=== PATIENT | male | born 1985 | race African-American/Black ===

== ENCOUNTER 2017-09-25 18:18 | Emergency (ER) | payer OTHER, SELFPAY ==
[2017-09-25 18:19] VITALS: BP 155/91; PULSE 81; RESP 16; TEMP 36.4; O2SAT 98; BMI 25.1
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
[2017-09-25 19:26] VITALS: BP 139/88; PULSE 65; RESP 14; O2SAT 99
== END 2017-09-25 19:28 | disposition home or self-care (01) ==
PROVIDERS: Emergency Provider Emergency Medicine
DX: S61.213A Laceration without foreign body of left middle finger without damage to nail, initial encounter (principal); W26.0XXA Contact with knife, initial encounter; Y93.9 Activity, unspecified; Y92.9 Unspecified place or not applicable; Z72.0 Tobacco use
CPT/HCPCS: 12001; 99283

== ENCOUNTER 2018-01-13 02:20 | Emergency (ER) | payer OTHER, SELFPAY ==
[2018-01-13] VITALS (7 sets, daily range): BP systolic 91–156; BP diastolic 44–96; PULSE 48–87; RESP 19–20; TEMP 36.4; O2SAT 97–100; BMI 28.4
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
[2018-01-13] MEDS: 0.9% Normal Saline 1,000 ML 999 ML IV (02:44)
[2018-01-13] MEDS: fentaNYL 100 MCG/2 ML Ampul 50 MCG IV (02:44)
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
[2018-01-13] MEDS: Etomidate 20 MG/10 ML Vial 10 MG IV (03:01)
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
--- NOTE | 2018-01-13 03:58 | ED.RN ---
PT LEFT WITHOUT D/C INSTRUCTIONS. PT REMOVED SLING AND SWATH. PT DRESSED AND WALKED OUT OF THE DEPARTMENTS
== END 2018-01-13 03:59 | disposition home or self-care (01) ==
PROVIDERS: Emergency Provider Emergency Medicine
DX: M24.412 Recurrent dislocation, left shoulder (principal); S00.33XA Contusion of nose, initial encounter; Y04.8XXA Assault by other bodily force, initial encounter; Y93.89 Activity, other specified
CPT/HCPCS: 23650; 73030; 99285; A4216

== ENCOUNTER 2018-02-01 10:10 | Emergency (ER) | payer OTHER, SELFPAY ==
[2018-02-01 10:11] VITALS: BP 148/83; PULSE 94; RESP 18; TEMP 36.8; O2SAT 98; BMI 28.8
[2018-02-01 10:52] LABS: Absolute Lymphocyte Count 1.49 X10^3/ul (0.83-4.51); Absolute Neutrophil Count 7.1 X10^3/uL (2.0-7.7); Anion Gap 6 (5-15); BUN 6 mg/dL (7-18); BUN/Creat Ratio 5.8 RATIO (10-20); Basophil# 0.01 X10^3/uL; Basophil% 0.1 % (0-1); Calcium,Total 8.9 mg/dL (8.5-10.1); Chloride 102 mmol/L (98-107); Creatinine, Serum 1.03 mg/dL (0.70-1.30); EST Glomerular Filtration Rate 89 mL/min (>60); Eosinophil# 0.04 X10^3/uL; Eosinophils% 0.4 % (0-5); Est Glom Filt Rate - Afr Amer 108 mL/min (>60); Estimated Creatinine Clearance 103.91 ml/min; Glucose 75 mg/dL (74-106); Hematocrit 46.5 % (40-54); Hemoglobin 15.9 g/dl (13.0-16.5); Lymphocyte # 1.49 X10^3/ul (4.0); Lymphocyte % 15.8 % (19-41); Mean Corp Hgb Conc 34.2 g/gl (32-36); Mean Corpuscular Hgb 31.4 pg (27.0-32.0); Mean Corpuscular Volume 91.9 fL (80-94); Mean Platelet Vol. 9.5 fl (6.2-12.0); Monocyte# 0.81 X10^3/uL; Monocyte% 8.6 % (0-10); Neutrophil # 7.09 X10^3/uL (2.7-7.7); Neutrophil % 74.9 % (47-70); Platelet Count 234 K/mm3 (150-450); Potassium 4.2 mmol/L (3.5-5.1); RBC Distribution Width CV 12.7 % (11.6-14.6); RBC Distribution Width SD 42.3 fl (35.1-43.9); Red Blood Count 5.06 M/mm3 (4.6-6.2); Sodium Level 137 mmol/L (136-145); White Blood Count 9.5 K/mm3 (4.4-11.0)
[2018-02-01 10:56] LABS: POSITIVE COUNT NO; POSITIVE DIFFERENTIAL NO; POSITIVE MORPHOLOGY NO
--- NOTE | 2018-02-01 12:43 | ED.DCSUM_ITS ---
- ER Visit Summary Date of Service: 02/01/18 Chief Complaint: Worsening rash left foot History of Present Illness: The patient is a 32 M who was seen at urgent care center and diagnosed with cellulitis and treated with cephalexin 500 mg 4 times daily. He reports because of increased redness. He denies fever, chills or night sweats. He denies history of rheumatic fever, murmur, SBE or being immune suppressed. He denies history of diabetes. He states he has been urinating slightly more. There is family history of diabetes. He denies calf, thigh or groin pain. 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 Please read written note for complete detail Physical Examination: Vital signs noted. Blood pressure is elevated 148/83. He is not febrile. There is evidence of tinea pedis between the third fourth and fourth fifth toe. There is cellulitis dorsum of the left foot. There is no lymphangitis. There is no popliteal or inguinal lymphadenopathy. Heart is regular without murmur, gallop or rub. S1 and S2 are normal. Lungs are clear to auscultation with good movement of air bilaterally. Test Results: White count is unremarkable. Electrolyte panel is unremarkable. Emergency Department Course and Treatment: Since patient symptoms have gotten worse in spite of 5 doses of cephalexin blood work was obtained. Suspect there is no improvement secondary to the tinea pedis. Treatment Plan: Lotrimin cream and patient was instructed to continue taking cephalexin and Bactrim that was ordered. Disposition: Discharged home with spouse Impression: 1. Cellulitis dorsum left foot 2. Tinea pedis This note was generated with [employer] dictation software. It may contain incorrect words, spelling, and punctuation that were not noted in review of the chart prior to signing ED Disposition - Plan for ED Patient: Disposition: Home or Assisted Living Chief Complaint: Cellulitis Instructions: Discharge Instructions for Cellulitis, ED Fungal Infec Athlete Foot Prescriptions: Smz/Tmp Ds [Bactrim Ds] 1 tab PO BID #14 tab Butenafine HCl [Lotrimin Ultra] 24 gm TP TID #1 cream..g. Referrals: Care Physician,No Primary [Primary Care Provider] - Bharath Mackey MD [STAFF PHYSICIAN] - 3-5 Days
[2018-02-01] MEDS: Smz/Tmp Ds Tablet 1 TABLET PO (13:05)
[2018-02-01 13:28] VITALS: BP 121/74; PULSE 68; RESP 15; O2SAT 99
[2018-02-01] MEDS: HYDROcodone Bitartrate/Apap 5/325 Tablet PO (13:28)
== END 2018-02-01 13:29 | disposition home or self-care (01) ==
PROVIDERS: Emergency Provider Emergency Medicine
DX: L03.116 Cellulitis of left lower limb (principal); B96.89 Other specified bacterial agents as the cause of diseases classified elsewhere; B35.3 Tinea pedis
CPT/HCPCS: 80048; 85025; 99284